=== PATIENT | male | born 1950 | race Caucasian/White ===

== ENCOUNTER 2025-08-01 15:37 | Inpatient (IN) | payer MEDICARE, SELFPAY ==
[2025-08-01] VITALS (20 sets, daily range): BP systolic 109–131; BP diastolic 59–69; BMI 30.9; BMI 29.8
--- NOTE | 2025-08-01 12:45 | ED.GENMED ---
History of Present Illness
<Magdalene Correa PA-C - Last Filed: 08/01/25 19:13>
General
Chief Complaint: Chest Pain
Source: patient
Exam Limitations: none
Time Seen by Provider: 08/01/25 12:34
History of Present Illness
History of Present Illness:
75yoM with a history of hypertension, hyperlipidemia, rheumatoid arthritis, and PMR presenting with his for evaluation of chest pain. He initially had some central chest tightness last night but did not tell his . He was able to sleep
last night and woke up again today with chest tightness. He was trying to sleep about an hour ago when his symptoms worsened. His noticed that he appeared sweaty and brought him to the ED for evaluation. He is also having shortness of breath
with even minimal exertion. Chest pain is worse with deep breathing. No dizziness, syncope, paresthesias, vomiting, abdominal pain, cough, fever. 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
was managed medically. 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 Souza.
Past History
<Magdalene Correa PA-C - Last Filed: 08/01/25 19:13>
Past History
ED Past Medical History: HTN, Hypercholesterolemia, Other (PMR) and Other (Urosepsis)
ED Past Surgical History: Cardiac and Orthopedic (Back surgery)
Social History
Tobacco: Non-smoker
Personal:
Living: with family
Employment: Employed
Family History
Family History: Negative Early CAD
Phy Exam
<Magdalene Correa PA-C - Last Filed: 08/01/25 19:13>
Physical Exam
Physical Exam:
Ill appearing, diaphoretic
General Physical Exam
General Presentation: mild distress
General Skin: warm and dry
General Habitus: normal
General Mental: alert
ENT Exam
ENT Exam: normocephalic
Cardiovascular Exam
Cardiovascular Exam: regular rate/rhythm and normal peripheral pulses (2+ radial and DP pulses bilaterally)
Pulmonary Exam
Pulmonary Exam: lungs clear, no respiratory distress, no rales, no crackles, no rhonchi and no wheezing
Gastrointestinal Exam
Gastrointestinal Exam: non tender, soft and non distended
Neurological Exam
Neurological Exam: alert
John Coma Scale
Eye Opening: Spontaneous
Verbal Response: Oriented
Motor Response: Obeys Commands
GCS Total Score: 15
Skin Exam
Skin Exam: normal color and diaphoresis
Psychiatric Exam
Psychiatric Exam: normal mood/affect
<Danyell Braun MD - Last Filed: 08/01/25 14:15>
John Coma Scale
GCS Total Score: 15
Scores
<Magdalene Correa PA-C - Last Filed: 08/01/25 19:13>
Heart Score for Chest Pain Patients
STEMI patient?: No
History: Highly Suspicious
ECG: Significant ST-Depression
Age: >/= 65 years
Risk Factors: >/= 3 Risk Factors or History of CAD
Troponin: </= Normal Limit
Heart Score for Chest Pain Patients: 8
Heart Score Risk: 72.7 % MACE over next 6 weeks
Course
<Magdalene Correa PA-C - Last Filed: 08/01/25 19:13>
Orders/Labs/Results
Orders:
Orders
08/01/25 Breakfast
NPO
Allow oral meds: Yes
Allow clear liquids: Sips of Clears
08/01/25 12:23
Electrocardiogram (*1) Urgent
Reason for Study: Chest Pain
EKG- Treatment ONCE
08/01/25 12:43
Cardiac Monitoring- Treatment ONCE
CXR Port [CR Chest Portable - 1 View] Stat
Comment:
Reason For Exam: CP
Reason Study Needs to be Portable: Patient Unstable
08/01/25 12:45
Complete Blood Count/With Diff Urgent
Comprehensive Metabolic Panel Urgent
D-Dimer Urgent
PTT Urgent
Prothrombin Time Urgent
Troponin I Urgent
08/01/25 12:52
Aspirin Chewable [Low Strength Aspirin] 243 mg PO NOW STA
08/01/25 12:54
Morphine Sulfate 2 mg IV NOW STA
08/01/25 13:30
Potassium Chloride [KCl] 20 meq PO NOW STA
08/01/25 14:14
Heparin 4,000 units IV NOW STA
08/01/25 14:15
Heparin 24133 Units/250 ml 25,000 units in 250 ml IV PER PROTOCOL
Weight to be used for heparin protocol in kilograms (kg):: 92.2
Protocol:: Cardiac Tx/Acute Coronary
PTT Goal Range to be used:: PTT 73 to 111 seconds
Order type:: Initial
INITIAL Infusion Dose (UNITS/KG/hr) & then follow protocol:: 12 units/kg/hr
Infusion Dose in UNITS/hr & then follow protocol (UNITS/hr):: 1,000
INFUSION RATE in mL/hr & then follow protocol (mL/hr):: 10
PTT less than or equal to 64 seconds:: Increase rate by 200 units/hr (+ 2 mL/hr)
PTT 64.1 to 72.9 seconds:: Increase rate by 100 units/hr (+ 1 mL/hr)
PTT 73 to 111 seconds:: Target Range. No change in rate.
PTT 111.1 to 130.9 seconds:: Decrease rate by 100 units/hr (- 1 mL/hr)
PTT 131 to 199.9 seconds:: HOLD for 1 hr. Then decrease rate by 200 units/hr (- 2 mL/hr)
PTT greater than or equal to 200 seconds:: HOLD for 2 hrs & Notify Provider. Then decrease by 200 units/hr (-
2 mL/hr)
Lab follow-up:: Each change, PTT q6h until 2 consecutive are therapeutic. Then PTT
daily.
Nitroglycerin 100 mg/250 ml [Nitroglycerin Premix] 100 mg in 250 ml IV PER PROTOCOL
Initial dose in mcg/min, then titrate:: 5
Titrate to keep:: Chest Pain Free
Titrate by mcg/min:: 5 mcg/min, may increase by 10 mcg/min if dose > 20 mcg/min
Frequency of titrations (minutes):: every 3-5 minutes
Maximum dose in mcg/min:: 200
Begin to taper infusion when:: Remained at goal for 2hrs
Taper by mcg/min:: 5 mcg/min
Frequency of taper (minutes) if patient maintains goal:: 30
Taper to off?: Yes
If infusion off & no longer maintaining goal:: Contact Provider
08/01/25 14:24
Admit/Transfer Patient As Directed
Co-Sign Provider:
Level of Care: Inpatient admission
Assign to:: IVU
Physician / Group: chato
Diagnosis: nstemi
Reason for Hospitalization: nstemi
Expected length of stay greater than two midnights?: Yes
ELOS- Estimated Length of Stay in days: 2
I certify the patient meets the requirements for IP care: Yes
08/01/25 14:25
Code Status As Directed
Resuscitation Status: Full Code
PRN Pain Medication Management As Directed
May give lesser potent ordered pain med per pt: Yes
preference::
Protocol:: Medication orders for pain may be administered in a
manner that supports deferring to patient preference
when the pt is:
- Requesting an ordered lesser potent pain medication.
Least to most potent pain medications are defined
as: acetaminophen < NSAID < tramadol < opioids
(morphine, oxycodone, hydromorphone).
- Requesting a lesser dose of the same medication IF
ORDERED.
- Requesting a less intrusive route of administration
if both routes are prescribed by the provider (PO <
IV).
08/01/25 Dinner
Cholesterol Lowering
At Your Request: Full Participation
Does patient need a safe tray?: No
Cholesterol Lowering: Sodium, 2 Gram
08/01/25 15:40
Ferrous Sulfate [Feosol] 325 mg PO Q48H
Zolpidem Tartrate [Ambien] 10 mg PO HSPRN PRN sleep
08/01/25 15:40
CARDIOLOGY CONSULT Routine
Consulting Provider: Nadeen Khan
Was physician already notified: Yes
VTE Contraindication Routine
VTE Mechanical Device Contraindication: Medical Contraindication
Pharmocologic Contraindication: Medical Contraindication
Heparin Protocol- PTT Orders As Directed
PTT per Heparin protocol: -Obtain CBC and baseline PTT - if not already collected.
-Obtain PTT 6 hours from start of infusion. Then, every 6 hours until 2 consecutive
PTT's are therapeutic. Then, PTT Daily.
-With each rate change, obtain PTT every 6 hours until 2 consecutive PTT's are
therapeutic. Then, PTT Daily.
Activity As Directed
Activity Level: As Tolerated
Notify MD As Directed
Notify physician if: PTT is greater than or equal to 200.
Vital Signs As Directed
Frequency: Per unit guidelines
08/01/25 15:46
COVID-19 Antigen Urgent
Source: Nasal Swab
08/01/25 15:48
Troponin I Q6H
08/01/25 16:00
CefTRIAXone [Rocephin] 1,000 mg IV Q24H
Doxycycline Hyclate [Vibramycin] 100 mg 0.9% Sodium Chloride 250 ml [Nss] 250 ml IV Q12H
Sterile Water [Sterile Water For Injection] 10 ml IV Q24H
08/01/25 17:18
Influenza A+B Rapid Molecular Urgent
CECILIA Source: Nasal Swab
Specimen Description:
08/01/25 20:[address] Non Medication Order As Directed
Physician Order: PTT 6 hours after initial start of Heparin infusion
Above order entered?: Yes
08/01/25 21:40
Troponin I Q6H
08/02/25 03:40
Troponin I Q6H
08/02/25 06:00
Complete Blood Count/With Diff IN AM
Comprehensive Metabolic Panel IN AM
08/02/25 08:00
Aspirin Low Dose EC [Aspir Low (Enteric Coated)] 81 mg PO DAILY
Atorvastatin [Lipitor] 40 mg PO DAILY
Diltiazem Extended Release [Cardizem Cd] 120 mg PO DAILY
Duloxetine Delayed Release [Cymbalta Delayed Release] 90 mg PO DAILY
Hydrochlorothiazide [Oretic] 25 mg PO DAILY
Losartan [Cozaar] 100 mg PO DAILY
Metoprolol Xl [Toprol Xl] 50 mg PO DAILY
Multivitamin [Theragran] 1 tablet PO DAILY
Pantoprazole [Protonix] 40 mg PO DAILY
omega 6-oci-suu-fish oil [Fish Oil] 2 cap PO DAILY
08/02/25 09:40
Troponin I Q6H
08/03/25 06:00
Complete Blood Count/No Diff Q2D
Comment: notify provider: Platelet count < 130,000 or decrease by 50% from baseline
08/05/25 06:00
Complete Blood Count/No Diff Q2D
Comment: notify provider: Platelet count < 130,000 or decrease by 50% from baseline
08/07/25 06:00
Complete Blood Count/No Diff Q2D
Comment: notify provider: Platelet count < 130,000 or decrease by 50% from baseline
08/09/25 06:00
Complete Blood Count/No Diff Q2D
Comment: notify provider: Platelet count < 130,000 or decrease by 50% from baseline
08/11/25 06:00
Complete Blood Count/No Diff Q2D
Comment: notify provider: Platelet count < 130,000 or decrease by 50% from baseline
08/13/25 06:00
Complete Blood Count/No Diff Q2D
Comment: notify provider: Platelet count < 130,000 or decrease by 50% from baseline
08/15/25 06:00
Complete Blood Count/No Diff Q2D
Comment: notify provider: Platelet count < 130,000 or decrease by 50% from baseline
08/17/25 06:00
Complete Blood Count/No Diff Q2D
Comment: notify provider: Platelet count < 130,000 or decrease by 50% from baseline
Abnormal Lab Results
08/01/25
12:45
RBC 4.68 L 10^6/uL
(4.70-6.10)
Hgb 12.0 L g/dL
(13.0-18.0)
Hct 36.5 L %
(39.0-52.0)
MCV 78.0 L fL
(80.0-94.0)
MCH 25.6 L pg
(27.0-31.0)
MCHC 32.9 L g/dL
(33.0-37.0)
RDW 21.0 H %
(11.5-14.5)
Absolute Neuts (auto) 6.9 H 10^3/uL
(1.4-6.5)
Absolute Monos (auto) 1.3 H 10^3/uL
(0.1-0.6)
Monocytes % 12.2 H %
(1.7-9.3)
Potassium 3.4 L mmol/L
(3.5-5.1)
Carbon Dioxide 32 H mmol/L
(22-30)
Glucose 119 H mg/dl
(70-99)
08/01/25 12:45
08/01/25 12:45
Vital Signs
Initial and Last Documented VS:
Initial Vital Signs
Temp Pulse Resp BP Pulse Ox
99.1 F 85 18 120/62 99
08/01/25 12:27 08/01/25 12:27 08/01/25 12:27 08/01/25 12:27 08/01/25 12:27
Last Documented Vital Signs
Temp Pulse Resp BP Pulse Ox
98.3 F 83 16 121/59 94
08/01/25 18:45 08/01/25 18:45 08/01/25 18:45 08/01/25 18:45 08/01/25 18:45
<Danyell Braun MD - Last Filed: 08/01/25 14:15>
Orders/Labs/Results
Orders:
Orders
08/01/25 Breakfast
NPO
Allow oral meds: Yes
Allow clear liquids: Sips of Clears
08/01/25 12:23
Electrocardiogram (*1) Urgent
Reason for Study: Chest Pain
EKG- Treatment ONCE
08/01/25 12:43
Cardiac Monitoring- Treatment ONCE
CXR Port [CR Chest Portable - 1 View] Stat
Comment:
Reason For Exam: CP
Reason Study Needs to be Portable: Patient Unstable
08/01/25 12:45
Complete Blood Count/With Diff Urgent
Comprehensive Metabolic Panel Urgent
D-Dimer Urgent
PTT Urgent
Prothrombin Time Urgent
Troponin I Urgent
08/01/25 12:52
Aspirin Chewable [Low Strength Aspirin] 243 mg PO NOW STA
08/01/25 12:54
Morphine Sulfate 2 mg IV NOW STA
08/01/25 13:30
Potassium Chloride [KCl] 20 meq PO NOW STA
08/01/25 14:14
Heparin 4,000 units IV NOW STA
08/01/25 14:15
Heparin 07780 Units/250 ml 25,000 units in 250 ml IV PER PROTOCOL
Weight to be used for heparin protocol in kilograms (kg):: 92.2
Protocol:: Cardiac Tx/Acute Coronary
PTT Goal Range to be used:: PTT 73 to 111 seconds
Order type:: Initial
INITIAL Infusion Dose (UNITS/KG/hr) & then follow protocol:: 12 units/kg/hr
Infusion Dose in UNITS/hr & then follow protocol (UNITS/hr):: 1,000
INFUSION RATE in mL/hr & then follow protocol (mL/hr):: 10
PTT less than or equal to 64 seconds:: Increase rate by 200 units/hr (+ 2 mL/hr)
PTT 64.1 to 72.9 seconds:: Increase rate by 100 units/hr (+ 1 mL/hr)
PTT 73 to 111 seconds:: Target Range. No change in rate.
PTT 111.1 to 130.9 seconds:: Decrease rate by 100 units/hr (- 1 mL/hr)
PTT 131 to 199.9 seconds:: HOLD for 1 hr. Then decrease rate by 200 units/hr (- 2 mL/hr)
PTT greater than or equal to 200 seconds:: HOLD for 2 hrs & Notify Provider. Then decrease by 200 units/hr (-
2 mL/hr)
Lab follow-up:: Each change, PTT q6h until 2 consecutive are therapeutic. Then PTT
daily.
Nitroglycerin 100 mg/250 ml [Nitroglycerin Premix] 100 mg in 250 ml IV PER PROTOCOL
Initial dose in mcg/min, then titrate:: 5
Titrate to keep:: Chest Pain Free
Titrate by mcg/min:: 5 mcg/min, may increase by 10 mcg/min if dose > 20 mcg/min
Frequency of titrations (minutes):: every 3-5 minutes
Maximum dose in mcg/min:: 200
Begin to taper infusion when:: Remained at goal for 2hrs
Taper by mcg/min:: 5 mcg/min
Frequency of taper (minutes) if patient maintains goal:: 30
Taper to off?: Yes
If infusion off & no longer maintaining goal:: Contact Provider
08/01/25 14:24
Admit/Transfer Patient As Directed
Co-Sign Provider:
Level of Care: Inpatient admission
Assign to:: IVU
Physician / Group: chato
Diagnosis: nstemi
Reason for Hospitalization: nstemi
Expected length of stay greater than two midnights?: Yes
ELOS- Estimated Length of Stay in days: 2
I certify the patient meets the requirements for IP care: Yes
08/01/25 14:25
Code Status As Directed
Resuscitation Status: Full Code
PRN Pain Medication Management As Directed
May give lesser potent ordered pain med per pt: Yes
preference::
Protocol:: Medication orders for pain may be administered in a
manner that supports deferring to patient preference
when the pt is:
- Requesting an ordered lesser potent pain medication.
Least to most potent pain medications are defined
as: acetaminophen < NSAID < tramadol < opioids
(morphine, oxycodone, hydromorphone).
- Requesting a lesser dose of the same medication IF
ORDERED.
- Requesting a less intrusive route of administration
if both routes are prescribed by the provider (PO <
IV).
08/01/25 Dinner
Cholesterol Lowering
At Your Request: Full Participation
Does patient need a safe tray?: No
Cholesterol Lowering: Sodium, 2 Gram
08/01/25 15:40
Ferrous Sulfate [Feosol] 325 mg PO Q48H
Zolpidem Tartrate [Ambien] 10 mg PO HSPRN PRN sleep
08/01/25 15:40
CARDIOLOGY CONSULT Routine
Consulting Provider: Nadeen Khan
Was physician already notified: Yes
VTE Contraindication Routine
VTE Mechanical Device Contraindication: Medical Contraindication
Pharmocologic Contraindication: Medical Contraindication
Heparin Protocol- PTT Orders As Directed
PTT per Heparin protocol: -Obtain CBC and baseline PTT - if not already collected.
-Obtain PTT 6 hours from start of infusion. Then, every 6 hours until 2 consecutive
PTT's are therapeutic. Then, PTT Daily.
-With each rate change, obtain PTT every 6 hours until 2 consecutive PTT's are
therapeutic. Then, PTT Daily.
Activity As Directed
Activity Level: As Tolerated
Notify MD As Directed
Notify physician if: PTT is greater than or equal to 200.
Vital Signs As Directed
Frequency: Per unit guidelines
08/01/25 15:46
COVID-19 Antigen Urgent
Source: Nasal Swab
08/01/25 15:48
Troponin I Q6H
08/01/25 16:00
CefTRIAXone [Rocephin] 1,000 mg IV Q24H
Doxycycline Hyclate [Vibramycin] 100 mg 0.9% Sodium Chloride 250 ml [Nss] 250 ml IV Q12H
Sterile Water [Sterile Water For Injection] 10 ml IV Q24H
08/01/25 17:18
Influenza A+B Rapid Molecular Urgent
CECILIA Source: Nasal Swab
Specimen Description:
08/01/25 20:[address] Non Medication Order As Directed
Physician Order: PTT 6 hours after initial start of Heparin infusion
Above order entered?: Yes
08/01/25 21:40
Troponin I Q6H
08/02/25 03:40
Troponin I Q6H
08/02/25 06:00
Complete Blood Count/With Diff IN AM
Comprehensive Metabolic Panel IN AM
08/02/25 08:00
Aspirin Low Dose EC [Aspir Low (Enteric Coated)] 81 mg PO DAILY
Atorvastatin [Lipitor] 40 mg PO DAILY
Diltiazem Extended Release [Cardizem Cd] 120 mg PO DAILY
Duloxetine Delayed Release [Cymbalta Delayed Release] 90 mg PO DAILY
Hydrochlorothiazide [Oretic] 25 mg PO DAILY
Losartan [Cozaar] 100 mg PO DAILY
Metoprolol Xl [Toprol Xl] 50 mg PO DAILY
Multivitamin [Theragran] 1 tablet PO DAILY
Pantoprazole [Protonix] 40 mg PO DAILY
omega 6-zwv-pwv-fish oil [Fish Oil] 2 cap PO DAILY
08/02/25 09:40
Troponin I Q6H
08/03/25 06:00
Complete Blood Count/No Diff Q2D
Comment: notify provider: Platelet count < 130,000 or decrease by 50% from baseline
08/05/25 06:00
Complete Blood Count/No Diff Q2D
Comment: notify provider: Platelet count < 130,000 or decrease by 50% from baseline
08/07/25 06:00
Complete Blood Count/No Diff Q2D
Comment: notify provider: Platelet count < 130,000 or decrease by 50% from baseline
08/09/25 06:00
Complete Blood Count/No Diff Q2D
Comment: notify provider: Platelet count < 130,000 or decrease by 50% from baseline
08/11/25 06:00
Complete Blood Count/No Diff Q2D
Comment: notify provider: Platelet count < 130,000 or decrease by 50% from baseline
08/13/25 06:00
Complete Blood Count/No Diff Q2D
Comment: notify provider: Platelet count < 130,000 or decrease by 50% from baseline
08/15/25 06:00
Complete Blood Count/No Diff Q2D
Comment: notify provider: Platelet count < 130,000 or decrease by 50% from baseline
08/17/25 06:00
Complete Blood Count/No Diff Q2D
Comment: notify provider: Platelet count < 130,000 or decrease by 50% from baseline
Abnormal Lab Results
08/01/25
12:45
RBC 4.68 L 10^6/uL
(4.70-6.10)
Hgb 12.0 L g/dL
(13.0-18.0)
Hct 36.5 L %
(39.0-52.0)
MCV 78.0 L fL
(80.0-94.0)
MCH 25.6 L pg
(27.0-31.0)
MCHC 32.9 L g/dL
(33.0-37.0)
RDW 21.0 H %
(11.5-14.5)
Absolute Neuts (auto) 6.9 H 10^3/uL
(1.4-6.5)
Absolute Monos (auto) 1.3 H 10^3/uL
(0.1-0.6)
Monocytes % 12.2 H %
(1.7-9.3)
Potassium 3.4 L mmol/L
(3.5-5.1)
Carbon Dioxide 32 H mmol/L
(22-30)
Glucose 119 H mg/dl
(70-99)
08/01/25 12:45
08/01/25 12:45
Vital Signs
Initial and Last Documented VS:
Initial Vital Signs
Temp Pulse Resp BP Pulse Ox
99.1 F 85 18 120/62 99
08/01/25 12:27 08/01/25 12:27 08/01/25 12:27 08/01/25 12:27 08/01/25 12:27
Last Documented Vital Signs
Temp Pulse Resp BP Pulse Ox
98.3 F 83 16 121/59 94
08/01/25 18:45 08/01/25 18:45 08/01/25 18:45 08/01/25 18:45 08/01/25 18:45
<Magdalene Correa PA-C - Last Filed: 08/01/25 19:13>
MDM/Problems Addressed
Differential Diagnosis Includes:
75yoM here with chest tightness and exertional dyspnea since last night. Diaphoretic on initial exam. Pain is pleuritic in nature. VSS. Differential diagnosis includes: ACS, unstable angina, PE, doubt aortic dissection
Initial ED plan: Triage EKG shows new ST changes in inferolateral leads without elevations. Will check cardiac labs, D-dimer, CXR. Aspirin ordered (already took 81mg so far today). IV morphine for pain.
<Magdalene Correa PA-C - Last Filed: 08/01/25 19:13>
*Pulse Oximetry
SaO2: 95
Oxygen Mode of Delivery: Room air
Patient hypoxic: no
*EKG
Interpreted by ED Provider?: Yes
EKG Intrepretation Date: 08/01/25
Heart Rate: 80
Rate: normal
Rhythm: sinus
[place]: normal axis
Interval: normal interval
QRS Pattern: normal QRS
Ischemia: ST depression (ST/T wave changes in inferolateral leads)
*Critical Care Note
Total Time (30-74mins, 75-104mins- exclusive of procedures): Not Applicable
<Magdalene Correa PA-C - Last Filed: 08/01/25 19:13>
Update Note
Update Note:
Troponin within normal limits. D-dimer normal making PE very unlikely. Chest x-ray interpreted as having a mild opacity in the left lower lobe representing probable pneumonia. He has no cough or fever and this would not explain the EKG changes.
Case discussed with cardiology team. Patient initiated on IV heparin. He is still having active chest pain and nitroglycerin infusion also initiated. Patient admitted for further management.
ED Attending Note
<SU Jeong-Ena - Last Filed: 08/01/25 19:13>
-
Portions of this chart may have been created with voice recognition software.� Occasional wrong word or��sound alike� substitutions may have occurred due to the inherent limitations of voice recognition software.
<Danyell Braun MD - Last Filed: 08/01/25 14:15>
ED Attending Note
Patient seen and examined by attending physician: Yes
I performed the substantive portion of visit, reviewed & personally made and approve the management plan that is documented in note by myself or KIRILL.: Yes
ED Attending Note:
Patient complains of 2 days of intermittent shortness of breath and sternal chest pain that is worse when he takes a deep breath. Patient appears well on exam. Heart sounds regular lungs are clear. EKG has deep lateral ST depressions. Given the
setting of concerns for acute coronary syndrome, we will start nitro and heparin in hopes of getting patient completely pain-free.
Discharge Plan
Departure
Patient Disposition: Admit
Date of Disposition: 08/01/25
Time of Disposition: 13:58
Presentation/result/management discussed w/ accepting MD/DO: Hospitalist
Discharge Problem:
Chest pain, Abnormal EKG
Interventions
Interventions:
*General Assessment Last Done: 08/01/25 12:39
*Neglect/Abuse Screening Last Done: 08/01/25 12:39
*ED COVID-19 Vaccine History Last Done: 08/01/25 12:39
*ED Influenza Vaccine History Last Done: 08/01/25 12:39
[facility] Risk Assessment Tool Last Done: 08/01/25 12:39
*Risk Screen - Suicide (C-SSRS) Last Done: 08/01/25 12:39
*Nursing Disposition Last Done: 08/01/25 15:42
ED- Cardiac Assessment Last Done: 08/01/25 12:39
Discharge Date and Time
Discharge Date/Time: 08/01/25 15:30
[2025-08-01 13:04] LABS: Hematocrit 36.5 % (39.0-52.0); Hemoglobin 12.0 g/dL (13.0-18.0); Mean Corp Hgb Conc. 32.9 g/dL (33.0-37.0); Mean Corpuscular Volume 78.0 fL (80.0-94.0); Nucleated Red Blood Cells % 0.3 % (-); Platelet Count 304 10^3/uL (130-400); Red Cell Dist. Width 21.0 % (11.5-14.5)
[2025-08-01] MEDS: MORPHINE SULFATE 2 MG IV (13:09)
[2025-08-01] MEDS: LOW STRENGTH ASPIRIN 243 MG PO (13:09)
[2025-08-01 13:27] LABS: ALT (SGPT) 33 U/L (0-50); AST (SGOT) 39 U/L (17-59); Albumin 4.4 g/dl (3.5-5.0); Alkaline Phosphatase 79 U/L (38-126); Blood Urea Nitrogen 17 mg/dl (9-20); Calcium 9.3 mg/dl (8.4-10.2); Carbon Dioxide 32 mmol/L (22-30); Chloride 99 mmol/L (98-107); Estimated Creatinine Clearance 71 ml/min; Glucose 119 mg/dl (70-99); Potassium 3.4 mmol/L (3.5-5.1); Sodium 137 mmol/L (135-145); Total Protein 7.6 g/dl (6.3-8.2); eGFR > 60.00
[2025-08-01] MEDS: KCL 20 MEQ PO (13:38)
[2025-08-01 13:40] LABS: Troponin I < 0.012 ng/ml
[2025-08-01 13:47] LABS: INR 1.05; PT 13.5 Sec (11.4-14.6)
[2025-08-01 13:48] LABS: APTT 30.6 Sec (23.4-35.0)
[2025-08-01 13:50] LABS: D-Dimer 0.38 ug/mlFEU (0.00-0.50)
[2025-08-01] MEDS: NITROGLYCERIN PREMIX 250 IV (14:27)
--- NOTE | 2025-08-01 14:33 | HPS.HSE ---
Family Physician
-
Family Physician:
Chief Complaint
-
chest pain
History of Present Illness
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 pylori, colonic polyp presenting for chest pain.
He had central chest tightness last night but was able to sleep and woke up today with chest tightness/pressure. Symptoms worsened an hour ago. notes that he was sweaty. Also shortness of it with minimal exertion. Chest pain worse with deep
breathing. Denies dizziness or passing out, numbness or tingling, vomiting, abdominal pain, fever. Denies nausea.
He has also had dry cough for few days.
Pain is currently rated 1 out of 10.
He had cardiac catheterization in 2021 which showed focal 40% mild stenosis of proximal RCA which was managed medically. 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
He denies smoking or alcohol use.
Medical History
Past Medical History
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 pylori, colonic polyp)
Past Surgical History: Reports None
Social History
Tobacco: Non-smoker
Alcohol: None
Drug: None
Family History
Family History: Not pertinent
Allergies / Home Medications
Allergies reflects when Allergies were last updated in [employer].
Home Medications with original date entered in [employer]
Allergy/Medication List:
Allergies
Allergy/AdvReac Type Severity Reaction Status Date / Time
No Known Allergies Allergy Verified 10/03/22 12:51
Home Medications
duloxetine 30 mg capsule,delayed release 90 mg PO DAILY Mental Health/Anxiety 11/02/21
sildenafil 100 mg tablet (Viagra) 100 mg PO DAILYPRN PRN ed 02/03/22
atorvastatin 40 mg tablet (Lipitor) 40 mg PO DAILY High cholesterol 11/26/22
zolpidem 10 mg tablet (Ambien) 10 mg PO HSPRN PRN sleep 07/03/22
pantoprazole 40 mg tablet,delayed release 40 mg PO DAILY Gastrointestinal issue 10/03/22
aspirin 81 mg tablet,delayed release 81 mg PO DAILY 08/01/25
diltiazem HCl 120 mg capsule,extended release 24 hr 120 mg PO DAILY 08/01/25
ferrous sulfate 325 mg (65 mg iron) tablet 325 mg PO Q48H 08/01/25
hydrochlorothiazide 25 mg tablet 25 mg PO DAILY 08/01/25
metoprolol succinate 50 mg tablet,extended release 24 hr 50 mg PO DAILY 08/01/25
multivitamin 1 tab PO DAILY 08/01/25
olmesartan 40 mg tablet 40 mg PO DAILY 08/01/25
omega 2-vpq-[id number]-fish oil 1,200 mg (144 mg-216 mg) capsule (Fish Oil) 2 cap PO DAILY 08/01/25
Review of Systems
-
History Source: Patient
A 12 point ROS was completed and negative except as noted: Yes
Constitutional: Reports No Symptoms
EENT: Reports No Symptoms
Respiratory: Reports See HPI
Cardiac: Reports See HPI
Abdomen/GI: Reports No Symptoms
: Reports No Symptoms
Musculoskeletal: Reports No Symptoms
Skin: Reports No Symptoms
Neurological: Reports No Symptoms
Endocrine: Reports No Symptoms
Hematologic/Lymphatic: Reports No Symptoms
Psych: Reports No Symptoms
Physical Exam
Vital Signs
Vital Signs
Temp Pulse Resp BP Pulse Ox
99.3 F 70 12 119/68 96
08/01/25 12:43 08/01/25 14:15 08/01/25 13:30 08/01/25 14:00 08/01/25 14:15
Physical Exam
General: Well Developed, Well Nourished and No Apparent Distress
HEENT: NormoCephalic, Moist mucous membranes and Atraumatic
Respiratory: Clear
Cardiac: S1/S2 and Regular Rhythm; No Murmur or Rub
GI: Soft, Non Tender, Non Distended and Normal Bowel Sounds; No Organomegaly
Rectal: Deferred by Provider
Musculoskeletal: No Clubbing, No Cyanosis and No Edema
Skin: No Rash
Neuro: Nonfocal/grossly intact
Laboratory Results
-
08/01/25 12:45
08/01/25 12:45
Laboratory Results
PT 13.5 Sec (11.4-14.6) 08/01/25 12:45
INR 1.05 08/01/25 12:45
APTT 30.6 Sec (23.4-35.0) 08/01/25 12:45
Total Bilirubin 0.7 mg/dl (0.2-1.3) 08/01/25 12:45
AST 39 U/L (17-59) 08/01/25 12:45
ALT 33 U/L (0-50) 08/01/25 12:45
Alkaline Phosphatase 79 U/L (38-126) 08/01/25 12:45
Troponin I < 0.012 ng/ml 08/01/25 12:45
Data Reviewed
-
Lab Data: Labs Reviewed by me
Old Records: Reviewed
Impression/Plan
-
IMPRESSION:
PLAN:
# Unstable angina/NSTEMI
- EKG shows T wave inversions in leads V3 to V6
-D-dimer 0.38
- Troponin negative
- Trend troponins
- Aspirin given
- Morphine given for pain
-Heparin drip
-Nitroglycerin drip
- Continue statin
- Cardiology consulted
- N.p.o. postmidnight for potential catheterization tomorrow
# Mild localized opacity in the left lower lobe
- Chest x-ray shows mild localized opacity left lower lobe probable pneumonia,
-Check COVID and influenza
- Will treat with ceftriaxone/doxycycline given cough and pleuritic pain
# Hypokalemia secondary to hydrochlorothiazide
- Replete potassium
History of CAD
- Continue metoprolol
Iron deficient anemia
- Continue iron sulfate
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
Essential hypertension
- Continue hydrochlorothiazide, olmesartan, diltiazem
Hyperlipidemia
Polymyalgia rheumatica
- Continue hydroxychloroquine
Anxiety/depression
- Continue duloxetine
BPH
History of H. pylori
History of colonic polyp
Full code
DVT prophylaxis�heparin
Regular diet
[2025-08-01] MEDS: HEPARIN 25000 UNITS/250 ML IV (14:48)
[2025-08-01] MEDS: HEPARIN 4000 UNITS IV (14:48)
--- NOTE | 2025-08-01 15:21 | CON.CAR ---
Consultation
Consultation Request
Date/Time Consultation Requested: 08/01/25
Reason for Consultation: 08/01/25
Medical History
-
Chief Complaint: Chest pain
History of Present Illness:
75-year-old gentleman, with history of iron deficiency anemia, history of TRALI, HTN, HPL, PMR, CAD, BPH, H. pylori, colonic polyp presented with 1 day history of chest pain. Patient's chest pains was mid chest associate with shortness of breath
that started yesterday. Patient's chest pain was significant enough and was rated as 7 out of 10. The pain improved with rest and patient was able to sleep. Patient slept for 2 hours and woke up again with ongoing chest pain. Patient was noted to be
somewhat sweaty and short of breath. He was having difficulty taking deep breaths and was brought to the ER. Patient also noted to have dry cough for the past few days. When initially patient presented he reported his chest pain was 7 out of 10 but
was treated with aspirin and morphine. At the time of my evaluation in the ER. His pain was 1 out of 10.
He does have a history of Cardi catheterization in 2021 that showed proximal RCA 40% stenosis and has been manage conservatively.
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 Souza
Left heart cath�Dr. Guidera 11/02/2021
RCA: Large dominant vessel with focal 40% mid stenosis proximal to the crux. The vessel is otherwise angiographically normal
1: Normal left ventricular function with EF 64%
2: Mild single vessel CAD as described
3. Continue low-dose aspirin and will add atorvastatin 40 mg daily and stop red yeast rice. He has been advised to have a lipid panel in 6-[address] Rodrigez or Dr. Renee
ECHO: 10/04/2022
Normal biventricular size and systolic function without regional wall motion
abnormality.
Moderate left atrial enlargement.
Mild mitral regurgitation.
Mild tricuspid regurgitation.
Estimated pulmonary artery pressure of 35-40 mmHg assuming a right atrial
pressure of 3 mmHg.
Compared to prior study of 07/06/2022 left atrial enlargement is now present.
and PASP estimate has increased from 15-20 mmHg.
Past Medical History
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 pylori,
colonic polyp)
Social History
Tobacco: Non-Smoker
Family History
Family History: Reviewed & Not Pertinent
Allergies / Home Medications
Allergy/AdvReac Type Severity Reaction Status Date / Time
No Known Allergies Allergy Verified 10/03/22 12:51
�Medication �Instructions �Recorded �Confirmed �Type
duloxetine 30 mg capsule,delayed 90 mg PO DAILY Mental 11/02/21 08/01/25 History
release Health/Anxiety
sildenafil 100 mg tablet (Viagra) 100 mg PO DAILYPRN PRN ed 02/03/22 08/01/25 History
atorvastatin 40 mg tablet (Lipitor) 40 mg PO DAILY High cholesterol 07/03/22 08/01/25 History
zolpidem 10 mg tablet (Ambien) 10 mg PO HSPRN PRN sleep 07/03/22 08/01/25 History
pantoprazole 40 mg tablet,delayed 40 mg PO DAILY Gastrointestinal 10/03/22 08/01/25 History
release issue
aspirin 81 mg tablet,delayed 81 mg PO DAILY 08/01/25 08/01/25 History
release
diltiazem HCl 120 mg 120 mg PO DAILY 08/01/25 08/01/25 History
capsule,extended release 24 hr
ferrous sulfate 325 mg (65 mg 325 mg PO Q48H 08/01/25 08/01/25 History
iron) tablet
hydrochlorothiazide 25 mg tablet 25 mg PO DAILY 08/01/25 08/01/25 History
metoprolol succinate 50 mg 50 mg PO DAILY 08/01/25 08/01/25 History
tablet,extended release 24 hr
multivitamin 1 tab PO DAILY 08/01/25 08/01/25 History
olmesartan 40 mg tablet 40 mg PO DAILY 08/01/25 08/01/25 History
omega 8-sxj-epz-fish oil 1,200 mg 2 cap PO DAILY 08/01/25 08/01/25 History
(144 mg-216 mg) capsule (Fish Oil)
Review of Systems
-
All other systems: Negative unless noted
Physical Exam
Vital Signs
Temp Pulse Resp BP Pulse Ox
99.3 F 68 12 116/63 97
08/01/25 12:43 08/01/25 14:45 08/01/25 13:30 08/01/25 14:45 08/01/25 14:45
Lab Results
08/01/25 12:45
08/01/25 12:45
Troponin I < 0.012 ng/ml 08/01/25 12:45
Physical Exam
General: Well Developed, Well Nourished and No Apparent Distress
HEENT: Normocephalic, Anicteric and Moist Mucous Membranes
Respiratory: Clear and Non Labored Respirations
Cardiac: S1/S2 and Regular Rhythm
GI: Soft, Non Tender and Non Distended
Musculoskeletal: No Clubbing, No Cyanosis and No Edema
Skin: Warm and Dry
Neuro: Awake, Alert, Oriented and AO x 3
Impression / Plan
-
75-year-old gentleman with history of nonobstructive coronary disease, HPL, and HTN presented with 1 day history of chest pain
Unstable angina/NSTEMI
- Troponin is negative, currently chest pain is 1 out of 10.
- Patient reports exertional pain
- EKG shows mild lateral wall ST depressions. Appears new from previous EKG in 2022
- Status post aspirin bolus, morphine, oxygen and heparin drip
- Will start nitroglycerin drip as well. No recent sildenafil use.
- Aspirin 81 mg every day
- Statin therapy
- Continue metoprolol. Hold diltiazem and HCTZ.
- Continue heparin
- N.p.o. after midnight
- Serial troponin
- Serial EKG
- If chest pain gets worse or new changes in EKG noted or significant elevation of troponin, we will consider urgent cardiac catheterization today.
Left lower lobe opacity
- Chest x-ray mild localized left lower lobe pneumonia
- Rule out COVID
- Treat with ceftriaxone and doxycycline
Hypokalemia
- Replete potassium
Hypertension
- Continue metoprolol and olmesartan.
- Hold diltiazem and HCTZ.
- Nitroglycerin drip.
Data Reviewed
-
EKG: Tracing Personally Visualized and interpreted, Report Reviewed by me, Discussed with Physician, Discussed with Patient and Discussed with Family
Radiology: Report Reviewed by me
Medical Tests (Nuc Med, Echo etc): Image Personally Visualized and interpreted
Labs: Labs Reviewed by me, Discussed with Physician, Discussed with Nurse and Discussed with Patient
Old Records: Reviewed
[2025-08-01 16:10] LABS: COVID-19 Antigen Negative (Negative)
[2025-08-01 16:19] LABS: Troponin I < 0.012 ng/ml
[2025-08-01] MEDS: ROCEPHIN 1000 MG IV (17:10)
[2025-08-01] MEDS: FEOSOL 325 MG PO (17:11)
[2025-08-01] MEDS: STERILE WATER FOR INJECTION 10 ML IV (17:11)
--- NOTE | 2025-08-01 18:04 | PTCARENOTE ---
Patient received from ED as nstemi admission. Heparin and nitro gtts infusing. The patient presently denies chest pain. Endorses feeling lightheaded at times. SR on telemetry. SaO2 on RA 97%. Admission completed. Patient and spouse oriented to room
and unit. Bed alarm in place as the patient is a high fall risk, the patient reported several falls in the past six months and increasing fatigue. Plan of care discussed. Call hutson within reach. Care ongoing.
[2025-08-01] MEDS: VIBRAMYCIN 100 MG PO (18:15)
[2025-08-01 21:46] LABS: APTT 98.0 Sec (23.4-35.0)
[2025-08-01 21:55] LABS: Troponin I < 0.012 ng/ml
[2025-08-02] VITALS (12 sets, daily range): BP systolic 119–136; BP diastolic 57–82; PULSE 82
[2025-08-02 03:38] LABS: Hematocrit 34.7 % (39.0-52.0); Hemoglobin 11.0 g/dL (13.0-18.0); Mean Corp Hgb Conc. 31.7 g/dL (33.0-37.0); Mean Corpuscular Volume 79.0 fL (80.0-94.0); Nucleated Red Blood Cells % 0 % (-); Platelet Count 245 10^3/uL (130-400); Red Cell Dist. Width 21.0 % (11.5-14.5)
[2025-08-02 03:48] LABS: APTT 96.9 Sec (23.4-35.0)
[2025-08-02 04:09] LABS: Troponin I < 0.012 ng/ml
[2025-08-02 04:46] LABS: ALT (SGPT) 32 U/L (0-50); AST (SGOT) 36 U/L (17-59); Albumin 4.0 g/dl (3.5-5.0); Alkaline Phosphatase 78 U/L (38-126); Blood Urea Nitrogen 19 mg/dl (9-20); Calcium 8.8 mg/dl (8.4-10.2); Carbon Dioxide 29 mmol/L (22-30); Chloride 100 mmol/L (98-107); Estimated Creatinine Clearance 70 ml/min; Glucose 118 mg/dl (70-99); Potassium 3.1 mmol/L (3.5-5.1); Sodium 137 mmol/L (135-145); Total Protein 6.7 g/dl (6.3-8.2); eGFR > 60.00
[2025-08-02] MEDS: KCL 270 MEQ IV (05:35)
--- NOTE | 2025-08-02 06:12 | PTCARENOTE ---
NSR on monitor, VSS Denies chest pain or any discomfort. Hepatin and nitro gtt per order. NPO after midnight
--- NOTE | 2025-08-02 08:00 | PTCARENOTE ---
Assumed care this morning. Patient AO x3. Heparin, Nitro infusing per MAR. Denies chest pain, only has chest discomfort with deep inspiration, occasional cough, lungs CTA, 98% on room air. NPO for cath today
[2025-08-02] MEDS: ASPIR LOW (ENTERIC COATED) 81 MG PO (08:04)
[2025-08-02] MEDS: PROTONIX 40 MG PO (08:04)
[2025-08-02] MEDS: VIBRAMYCIN 100 MG PO ×2 (08:04→20:17)
[2025-08-02] MEDS: CYMBALTA DELAYED RELEASE 90 MG PO (08:04)
[2025-08-02] MEDS: LIPITOR 40 MG PO (08:05)
[2025-08-02] MEDS: TOPROL XL 50 MG PO (08:05)
[2025-08-02] MEDS: THERAGRAN 1 TABLET PO (08:05)
[2025-08-02] MEDS: COZAAR 100 MG PO (08:05)
--- NOTE | 2025-08-02 09:48 | W.PN.HOSP.TC ---
Today's Communication/Plan
-
.
Assessment / Plan
Assessment / Plan
Physical Exam
General: Well Developed, Well Nourished and No Apparent Distress
HEENT: Normocephalic, Moist mucous membranes and Atraumatic
Respiratory: Clear
Cardiac: S1/S2
GI: Soft, Non Tender, Non Distended and Normal Bowel Sounds;
Rectal: Deferred by Provider
Musculoskeletal: No Clubbing, No Cyanosis and No Edema
Skin: No Rash
Neuro: Nonfocal/grossly intact
Psych: calm
# Chest pain
DDX: Unstable angina/NSTEMI or pulmonary source
- EKG showed some changes. Troponin remained negative
On IV Heparin gtt, Nitro gtt
Seems to be NPO for heart cath
# Mild localized opacity in the left lower lobe
- Chest x-ray showed mild localized opacity left lower lobe probable pneumonia/ atelectasis , lack of sob/cough/ leukocytosis ( he denies cough)
-Negative COVID and influenza
-Empiric ceftriaxone/doxycycline for now
# Hypokalemia secondary to hydrochlorothiazide
- Replete potassium
History of CAD
- Continue metoprolol
Iron deficient anemia
- Continue iron sulfate
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
Essential hypertension
- Hold hydrochlorothiazide, olmesartan, diltiazem with current drips and pending procedure
Hyperlipidemia
Polymyalgia rheumatica
- Continue hydroxychloroquine
Anxiety/depression
- Continue duloxetine
BPH
History of H. pylori
History of colonic polyp
Full code
DVT prophylaxis�heparin
Regular diet
Total time spent to see the patient, examine the patient, review data and lab results, discuss treatment plan with patient, nursing staff around 55 minutes
Anticipated Discharge: > 48 hours
Subjective/Interval History
-
Date of Service: August 02, 2025
Objective Data
-
Labs:
Laboratory Results
08/01/25 08/02/25
21:19 03:21
WBC 8.1
Hgb 11.0 L
Hct 34.7 L
Plt Count 245
APTT 98.0 H 96.9 H
Sodium 137
Potassium 3.1 L
Chloride 100
Carbon Dioxide 29
BUN 19
Creatinine 0.9
Glucose 118 H
Calcium 8.8
Total Bilirubin 0.3
AST 36
ALT 32
Alkaline Phosphatase 78
Vital Signs:
Vital Signs
Temp Pulse Resp BP Pulse Ox
99.0 F 75 16 127/67 97
08/02/25 08:03 08/02/25 05:00 08/02/25 08:03 08/02/25 03:15 08/02/25 08:03
I&O
08/01/25 08/02/25 08/03/25
06:59 06:59 06:59
Intake Total 120 / 120
Balance 120 / 120
--- NOTE | 2025-08-02 10:40 | CON.PUL ---
Consultation
Consultation Request
Date/Time Consultation Requested: 08/02/2025645
Date/Time Consultation Performed: 08/02/2025921
Requesting Provider: Dr. Turner
Performing Provider: Dr. Gil
Reason for Consultation: Abnormal CXR/pneumonia
Medical History
-
Chief Complaint: Chest pain + SOB
History of Present Illness:
75-year-old male with a past medical history of anemia, RA, PMR, hypertension, hyperlipidemia and history of COVID-19 who presents for chest pain + SOB. EKG showed nonspecific ST�T wave changes with ST depression/T wave inversions in the lateral
precordial leads, and troponins were negative x 4. His SOB started on [place] and he does not usually have SOB. He has a non-� bothersome cough. He has been feeling fatigued for 2 months, and was recently diagnosed with severe sleep apnea.
He is awaiting to see us in the office with Dr. Clements. The sleep study was ordered by his manufacturing quality engineer, Dr. Ornelas. CXR showed a mild localized opacity in the left lower lobe with suspected pneumonia. Given his concern for unstable angina, a
left heart catheterization was performed earlier this morning (08/02), showing nonobstructive CAD with normal LV filling pressures and no aortic stenosis. Heparin drip was stopped. Unfortunately, his SOB + chest discomfort has persisted.
Pulmonary service now consulted for additional management/recommendations.
PMHx: History of migraine headaches, hypokalemia, rheumatoid arthritis, history of psoriatic arthritis, hyperlipidemia, hypertension, history of MSSA bacteremia (2021), iron deficiency anemia, history of TACO, BPH, history of H. pylori, colonic
polyp
PSHx: Coronary cath, lumbar laminectomy
Past Medical History
Past Medical History: Other (Above as per HPI)
Past Surgical History: Other (Above as per HPI)
Social History
Tobacco: Non-smoker
Alcohol: None
Drug: None
Personal:
Living: With Family
Family History
Family History: Adopted, CAD (Mother), Hypertension (Mother) and Other (Denies a family history of blood clots)
Allergies / Home Medications
Allergies
Allergy/AdvReac Type Severity Reaction Status Date / Time
No Known Allergies Allergy Verified 10/03/22 12:51
Home Medications
�Medication �Instructions �Recorded �Confirmed �Last Taken �Type
duloxetine 30 mg capsule,delayed 90 mg PO DAILY Mental 11/02/21 08/01/25 08/01/25 History
release Health/Anxiety
sildenafil 100 mg tablet (Viagra) 100 mg PO DAILYPRN PRN ed 02/03/22 08/01/25 1 Week Ago History
~07/25/25
atorvastatin 40 mg tablet (Lipitor) 40 mg PO DAILY High cholesterol 07/03/22 08/01/25 08/01/25 History
zolpidem 10 mg tablet (Ambien) 10 mg PO HSPRN PRN sleep 07/03/22 08/01/25 2 Days Ago History
~07/30/25
pantoprazole 40 mg tablet,delayed 40 mg PO DAILY Gastrointestinal 10/03/22 08/01/25 08/01/25 History
release issue
aspirin 81 mg tablet,delayed 81 mg PO DAILY 08/01/25 08/01/25 08/01/25 History
release
diltiazem HCl 120 mg 120 mg PO DAILY 08/01/25 08/01/25 08/01/25 History
capsule,extended release 24 hr
ferrous sulfate 325 mg (65 mg 325 mg PO Q48H 08/01/25 08/01/25 Unknown History
iron) tablet
hydrochlorothiazide 25 mg tablet 25 mg PO DAILY 08/01/25 08/01/25 08/01/25 History
metoprolol succinate 50 mg 50 mg PO DAILY 08/01/25 08/01/25 08/01/25 History
tablet,extended release 24 hr
multivitamin 1 tab PO DAILY 08/01/25 08/01/25 08/01/25 History
olmesartan 40 mg tablet 40 mg PO DAILY 08/01/25 08/01/25 08/01/25 History
omega 0-nde-ioy-fish oil 1,200 mg 2 cap PO DAILY 08/01/25 08/01/25 08/01/25 History
(144 mg-216 mg) capsule (Fish Oil)
Review of Systems
-
History Source: Patient
All other systems: Negative unless noted
Vitals / Labs / Diagnostic Testing
Vital Signs
Temp Pulse Resp BP Pulse Ox
99.0 F 75 16 127/67 97
08/02/25 08:03 08/02/25 05:00 08/02/25 08:03 08/02/25 03:15 08/02/25 08:03
Lab Data
08/02/25 03:21
08/02/25 03:21
Laboratory Results
08/01/25 08/01/25 08/02/25
12:45 21:19 03:21
PT 13.5
INR 1.05
APTT 30.6 98.0 H 96.9 H
Microbiology
08/01/25 17:18 Nasal Swab Influenza Types A & B (JOYCE) - Final
Negative for Influenza A & B, NAAT
Negative results must be combined with clinical observations
and patient history.
Nucleic Acid Amplification test (NAAT)performed on the
[employer] platform.
Diagnostic Testing:
Physical Exam
-
HEENT: Normocephalic, Anicteric and Other (Thick neck)
Cardiovascular: S1/S2 and Peripheral Edema (negative)
Respiratory: Wheeze (negative), Rales (negative), Rhonchi (negative) and Non-Labored Respirations
GI: Soft, Distended (Abdominal obesity), Non Tender and Normal Bowel Sounds
Neurology: Awake, Alert, Oriented and Tremors (negative)
Skin: Warm and Dry
General: Respiratory Distress (negative), Comfortable, Chills (negative) and Sweats (negative)
Assessment
-
Assessment: 75-year-old male with a past medical history of anemia, RA, PMR, hypertension, hyperlipidemia and history of COVID-19 who presents for chest pain + SOB. EKG showed nonspecific ST�T wave changes with ST depression/T wave inversions in
the lateral precordial leads, and troponins were negative x 4. His SOB started on [place] and he does not usually have SOB. He has a non-� bothersome cough. He has been feeling fatigued for 2 months, and was recently diagnosed with severe
sleep apnea. He is awaiting to see us in the office with Dr. Clements. The sleep study was ordered by his manufacturing quality engineer, Dr. Ornelas. CXR showed a mild localized opacity in the left lower lobe with suspected pneumonia. Given his concern for
unstable angina, a left heart catheterization was performed earlier this morning (08/02), showing nonobstructive CAD with normal LV filling pressures and no aortic stenosis. Heparin drip was stopped. Unfortunately, his SOB + chest discomfort has
persisted. Pulmonary service now consulted for additional management/recommendations.
Chronic conditions [employer]: History of migraine headaches, hypokalemia, rheumatoid arthritis, history of psoriatic arthritis, hyperlipidemia, hypertension, history of MSSA bacteremia (2021), iron deficiency anemia, history of TACO, BPH, history of
H. pylori, colonic polyp
Impression:
#Chest pain + SOB
#Retrocardiac opacity � differential includes nodular atelectasis vs pneumonia
#Hypokalemia
#History of eosinophilia (absolute eosinophil count: 800 in October 2022)
#Severe TAMIR (recently diagnosed � sleep study ordered by his manufacturing quality engineer, Dr. Ornelas)
#Iron deficiency anemia (Ferritin: 7.7 on 09/21/2022)
#PMR
#RA
#History of cephalic vein thrombosis provoked by PICC line (October 2022)
#Mild pulmonary hypertension (PASP: 35-40 mmHg on echo from September 2022)
Plan:
- Patient has presented with chest pain + SOB with LHC negative for obstructive CAD
- Heparin gtt now stopped; re-check EKG tomorrow to assess for persistence of his abnormal ST�T changes
- Given his trip to [place] in May and the fact that his chest pain is pleuritic, and acute PE is certainly a possibility, however his D-dimer on admission was WNL at 0.3
- I will order a CTA chest which will be done tomorrow given his [facility] today (08/02) to avoid an excessive contrast load (this was also agreed upon by radiology)
- Check echo now to assess right-sided pressures + RV size/function
- If PASP is greater than 35�40 from last echo in 2022, and/or RV size/function is abnormal then would place back onto heparin drip until CTA chest has been performed
- He does have a history of eosinophilia with absolute count of 800 in October 2022, and has been between 200�300 since this admission � give trial of DuoNebs to see if symptoms improve
- prn nebulized bronchodilators - not currently bronchospastic
- Continue supplemental oxygen if needed to maintain SpO2 >90-94%
- If patient receives DuoNebs and feels significant improvement, then would consider starting a LABA/ICS or scheduled DuoNebs
- Agree with empiric antibiotics although I do not suspect he is having pneumonia given he lacks symptoms, is nontoxic-appearing and has been afebrile
- Continue with ceftriaxone + Doxy for now
- Check procalcitonin and if negative (<0.25), then would stop antibiotics at that time
- Trend WBC and monitor temperature curve
- Given reports of his newly diagnosed severe sleep apnea, I will start him on CPAP tonight
- He has yet to start CPAP treatment
- He already has an office visit scheduled for 08/20/[address] Clements
- Remainder of TAMIR management will be performed as an outpatient
- Incentive spirometer encouraged q1hr while awake
- Replete electrolytes with K>4, Mg>2
- Trend H/H and transfuse if needed to keep Hb>7g/dL; keep plt>20k, unless there is concern for bleeding then keep plt>50k
- Maintain euglycemia with goal BG >100 and <180; check A1C
- DVT ppx: Now that heparin drip is stopped, start LMWH
Dr. Gil spoke to the patient's , Agustina Ramirez, at bedside and all questions were answered.
Pulmonary service will continue to follow along. Outpatient office follow-up already arranged with Dr. Clements (08/20/2025 at 4:00PM)
Data:
CXR 08/01/2025: Mild localized opacity in the left lower lobe, probable pneumonia. Recommend follow-up after conservative therapy to assess resolution.
Left heart catheterization 08/02/2025:
CONCLUSIONS:
1. Normal LV filling pressure and no aortic stenosis
2. Mild CAD unchanged from 2021 as described
RECOMMENDATIONS:
1. workup for etiology of chest pain no related to epicardial CAD
2. primary prevention of CAD
Transthoracic echocardiogram 10/04/2022:
Normal biventricular size and systolic function without regional wall motion abnormality.
Moderate left atrial enlargement.
Mild mitral regurgitation.
Mild tricuspid regurgitation.
Estimated pulmonary artery pressure of 35-40 mmHg assuming a right atrial pressure of 3 mmHg.
Compared to prior study of 07/06/2022 left atrial enlargement is now present, and PASP estimate has increased from 15-20 mmHg.
Total time spent today was 58 minutes for this encounter. Time includes reviewing laboratory test/imaging results, reviewing pertinent medical records, obtaining and reviewing medical history, performing an appropriate exam, ordering medications,
tests and procedures. Time also includes documentation of this encounter, coordinating patient care and communicating with other healthcare professionals. Total time does not include separately billed tests performed on this date of service.
--- NOTE | 2025-08-02 10:45 | ITS.CL.PN ---
[employer] Officer - Procedure Note
Procedure
Procedure Note:
CARDIAC CATHETERIZATION REPORT
Date of Procedure: 08/02/2025
Referring: Dr. Nadeen Khan MD
Indication: concern for ACS
PROCEDURE(S)
1. left heart catheterization
2. coronary angiography
ACCESS: 6F right radial artery (closure: radial band)
CATHETERS
1. 6F JR4
2. 6F JL4
MODERATE SEDATION: 25 minutes of moderate sedation was utilized. An independent electromedical equipment repairer was present to assist with and help manage the patient's level of consciousness and physiologic status.
HEMODYNAMIC DATA
LV 140/2 (EDP 9) mmHg
AO 144/79 (mean 98) mmHg
CORONARY ANGIOGRAPHY
Dominance: right
LM: large, normal
LAD: large vessel giving rise to two moderate caliber diagonals and wrapping around the apex. There are trivial luminal irregularities only.
LCx: large vessel giving rise to a large high-rising OM1/ramus, moderate caliber OM2, small OM3, and moderate caliber LPL. There are trivial luminal irregularities only.
RCA: large vessel giving rise to a moderate caliber RPDA. There is a 30-40% stenosis in the mid-RCA that is unchanged from prior angiography in 2021.
CONCLUSIONS
1. Normal LV filling pressure and no aortic stenosis
2. Mild CAD unchanged from 2021 as described
RECOMMENDATIONS
1. workup for etiology of chest pain no related to epicardial CAD
2. primary prevention of CAD
Copy to: Dr. Ernestina Rodrigez MD (solutions operator); Dr. Kimmie Renee MD (PCP)
Signed: Jose Block MD, PhD
--- NOTE | 2025-08-02 11:08 | W.PN.CD ---
Today's Communication / Plan
-
cath without obstructive CAD
stop heparin and nitro, resume home meds
tx for pneumonia per hospitalist team
stable for discharge from CV standpoint
Impression / Plan
-
75-year-old gentleman with history of nonobstructive coronary disease, HPL, and HTN presented with 1 day history of chest pain
Unstable angina/NSTEMI
- reports exertional and rest pain, now CP free on low dose nitro
- Troponin is negative x3, EKG with lateral ST depressions
- cardiac cath today with no obstructive CAD, mild mid-RCA stenosis stable from 2021
- etiology of chest pain unlikely to be cardiac
- stop nitro, heparin
- resume home meds
- stable for discharge from CV standpoint
Left lower lobe opacity
- Chest x-ray mild localized left lower lobe pneumonia
- Rule out COVID
- Treat with ceftriaxone and doxycycline
Hypokalemia
- Replete potassium
Hypertension
- resume home meds
Physical Exam
Vital Signs/Labs
Vital Signs
Temp Pulse Resp BP Pulse Ox
37.2 C 75 16 127/67 97
08/02/25 08:03 08/02/25 05:00 08/02/25 08:03 08/02/25 03:15 08/02/25 08:03
08/01/25 08/02/25 08/03/25
06:59 06:59 06:59
Actual Weight 88.9 kg
08/02/25 03:21
08/02/25 03:21
PT 13.5 Sec (11.4-14.6) 08/01/25 12:45
INR 1.05 08/01/25 12:45
APTT 96.9 Sec (23.4-35.0) H 08/02/25 03:21
LAB Results
1208/01/25 08/01/25
12:45 15:48 21:19
Troponin I < 0.012 < 0.012 < 0.012
08/02/25 08/02/25
03:21 09:40
Troponin I < 0.012 Cancelled
Physical Exam
Cardiovascular: Rhythm & rate is regular
Respiratory: Respiratory effort normal
Neuro/Psych: AO x 3
Data Reviewed
-
Date of Service: August 02, 2025
Medical Decision Making: Reviewed Test Results
EKG: Tracing Personally Visualized and interpreted
Labs: Labs Reviewed by me
--- NOTE | 2025-08-02 11:23 | PTCARENOTE ---
Patient received from the clinical laboratory assistant. Right radial band intact. VSS. at bedside
--- NOTE | 2025-08-02 11:47 | CM ---
pt prev indep, lives with his in [facility] home with 1 step to enter, he has a cane and a walker at home to use if needed. planis for dc to home when medically stable.
[2025-08-02] MEDS: STERILE WATER FOR INJECTION 10 ML IV (14:33)
[2025-08-02] MEDS: ROCEPHIN 1000 MG IV (14:33)
--- NOTE | 2025-08-02 14:58 | PTCARENOTE ---
Heart station notified to do ECHO today
[2025-08-02] MEDS: DUONEB 3 ML INH (16:01)
[2025-08-02] MEDS: LOVENOX 40 MG SC (17:15)
[2025-08-02 17:46] LABS: Procalcitonin < 0.05 ng/ml (0.0-0.25)
[2025-08-02] MEDS: AMBIEN 10 MG PO (20:17)
--- NOTE | 2025-08-03 02:08 | PTCARENOTE ---
Assumed care on pt at 1900, aaox3, denies c/o SOB, some mid chest discomfort with deep breathing, R radial cath site with clean, dry and intact dressing, good pulses, no swelling or bruising noted. SR on tele monitor, HR 80's. BP stable. Call hutson
within reach, POC ongoing.
[2025-08-03 04:30] VITALS: BP 136/66
[2025-08-03 05:43] LABS: Hematocrit 35.0 % (39.0-52.0); Hemoglobin 11.2 g/dL (13.0-18.0); Mean Corp Hgb Conc. 32.0 g/dL (33.0-37.0); Mean Corpuscular Volume 80.1 fL (80.0-94.0); Platelet Count 230 10^3/uL (130-400); Red Cell Dist. Width 21.2 % (11.5-14.5)
[2025-08-03 05:58] LABS: APTT 35.4 Sec (23.4-35.0)
[2025-08-03 06:07] LABS: Blood Urea Nitrogen 17 mg/dl (9-20); Calcium 8.6 mg/dl (8.4-10.2); Carbon Dioxide 26 mmol/L (22-30); Chloride 105 mmol/L (98-107); Estimated Creatinine Clearance 70 ml/min; Glucose 106 mg/dl (70-99); Magnesium 2.1 mg/dl (1.6-2.3); Potassium 3.7 mmol/L (3.5-5.1); Sodium 138 mmol/L (135-145); eGFR > 60.00
[2025-08-03 07:05] VITALS: BP 135/79
[2025-08-03 08:22] VITALS: BP 125/62
[2025-08-03] MEDS: LIPITOR 40 MG PO (08:24)
[2025-08-03] MEDS: THERAGRAN 1 TABLET PO (08:24)
[2025-08-03] MEDS: ASPIR LOW (ENTERIC COATED) 81 MG PO (08:24)
[2025-08-03] MEDS: CYMBALTA DELAYED RELEASE 90 MG PO (08:24)
[2025-08-03] MEDS: TOPROL XL 50 MG PO (08:24)
[2025-08-03] MEDS: VIBRAMYCIN 100 MG PO (08:24)
[2025-08-03] MEDS: PROTONIX 40 MG PO (08:24)
--- NOTE | 2025-08-03 09:39 | W.PN.HOSP.TC ---
Addendum entered and electronically signed by Santiago Turner MD 08/03/25 13:14:
Addendum CT chest negative PE. Review result with pulmonary. Reviewed results with patient and . For outpatient pulmonary follow-up. Patient is feeling better. Did not need
Pain medication for pleuritic chest pain
Elevated monocytosis, would recommend oncology/hematology outpatient follow-up
Okay to discharge
End
Original Note:
Today's Communication/Plan
-
Possible discharge after CT chest
Assessment / Plan
Assessment / Plan
Physical Exam
General: Well Developed, Well Nourished and No Apparent Distress
HEENT: Normocephalic, Moist mucous membranes and Atraumatic
Respiratory: Clear
Cardiac: S1/S2
GI: Soft, Non Tender, Non Distended and Normal Bowel Sounds;
Rectal: Deferred by Provider
Musculoskeletal: No Clubbing, No Cyanosis and No Edema
Skin: No Rash
Neuro: Nonfocal/grossly intact
Psych: calm
# Chest pain
Better, c/w pleurisy
C no obstructive CAD
NSTMI is ruled out as Troponin is negative x3, EKG with lateral ST depressions
- cardiac cath with no obstructive CAD, mild mid-RCA stenosis stable from 2021
Echo 08/02
Normal biventricular size and systolic function without regional wall motion abnormality. LVEF 64%.
2. No significant valvular disease.
3. Normal PASP.
4. No pericardial effusion.
5. Mildly dilated aortic root (4.1 cm).
6. Compared to prior echocardiogram in 2022, PASP has decreased from 35-40 mmHg. Aortic root previously measured 3.8 cm.
Per cardiology, ok to discharge
# Mild localized opacity in the left lower lobe
- Chest x-ray showed mild localized opacity left lower lobe probable pneumonia/ atelectasis , lack of sob/cough/ leukocytosis ( he denies cough)
-Negative COVID and influenza
-Empiric ceftriaxone/doxycycline for now , CT to rule out pE. d/w pulmonary/ cardiology/ radiology, agreement to space out catheterization and CT angio to avoid kidney damage since the patient is hemodynamically stable and did not have signs of
right ventricular strain on echo or catheterization.
# Hypokalemia
-replaced
Iron deficient anemia
- Continue iron sulfate
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
Essential hypertension
- ok to resume home medications
Hyperlipidemia
Polymyalgia rheumatica
- Continue hydroxychloroquine
Anxiety/depression
- Continue duloxetine
BPH
History of H. pylori
History of colonic polyp
d/w family
Total discharge time spent to see the patient, examine the patient, review data and lab results, discuss discharge plan with patient, nursing staff around 65 minutes
Anticipated Discharge: Today
Subjective/Interval History
-
Date of Service: August 03, 2025
he feels better
less pleuritic chest pain
Objective Data
-
Labs:
Laboratory Results
08/03/25
04:47
WBC 5.7
Hgb 11.2 L
Hct 35.0 L
Plt Count 230
APTT 35.4 H
Sodium 138
Potassium 3.7
Chloride 105
Carbon Dioxide 26
BUN 17
Creatinine 0.9
Glucose 106 H
Calcium 8.6
Vital Signs:
Vital Signs
Temp Pulse Resp BP Pulse Ox
98.3 F 80 16 125/62 96
08/03/25 07:02 08/03/25 08:24 08/03/25 07:02 08/03/25 08:24 08/03/25 08:23
I&O
08/02/25 08/03/25 08/04/25
06:59 06:59 06:59
Intake Total 120 / 120 1010 / 1010
Balance 120 / 120 1010 / 1010
--- NOTE | 2025-08-03 10:03 | PTCARENOTE ---
Patient received at change of shift resting in the bed. SR on telemetry. Right radial cath site with gauze and tegaderm C/D/I, radial pulse palpable. The patient denies pain this morning, reports feeling much better. Denies N/V. Denies feeling
lightheaded or dizzy. Plan of care discussed. Call hutson within reach. Care ongoing.
[2025-08-03 10:23] LABS: Glycohemoglobin (HgbA1c) 6.6 % (4.0-5.9)
[2025-08-03 11:13] VITALS: BP 128/73
--- NOTE | 2025-08-03 12:12 | W.PN.PUL3 ---
Today's Communication / Plan
-
Outpatient pulmonary follow-up
Will reevaluate in the outpatient setting whether asthma is a possibility-less likely as previous to this event patient was feeling okay.
Agree with discharge planning
Sign off
Assessment
-
Assessment: 75-year-old male with a past medical history of anemia, RA, PMR, hypertension, hyperlipidemia and history of COVID-19 who presents for chest pain + SOB. EKG showed nonspecific ST�T wave changes with ST depression/T wave inversions in
the lateral precordial leads, and troponins were negative x 4. His SOB started on [place] and he does not usually have SOB. He has a non-� bothersome cough. He has been feeling fatigued for 2 months, and was recently diagnosed with severe
sleep apnea. He is awaiting to see us in the office with Dr. Clements. 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 Ornelas. CXR showed a mild localized opacity in the left lower lobe with suspected pneumonia. Given his concern for
unstable angina, a left heart catheterization was performed earlier this morning (08/02), showing nonobstructive CAD with normal LV filling pressures and no aortic stenosis. Heparin drip was stopped. Unfortunately, his SOB + chest discomfort has
persisted. Pulmonary service now consulted for additional management/recommendations.
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
H. pylori, colonic polyp
Impression:
#Chest pain + SOB
#Retrocardiac opacity � differential includes nodular atelectasis vs pneumonia
#Hypokalemia
#History of eosinophilia (absolute eosinophil count: 800 in October 2022)
#Severe TAMIR (recently diagnosed � sleep study ordered by his form press operator, Dr. Ornelas)
#Iron deficiency anemia (Ferritin: 7.7 on 09/21/2022)
#PMR
#RA
#History of cephalic vein thrombosis provoked by PICC line (October 2022)
#Mild pulmonary hypertension (PASP: 35-40 mmHg on echo from September 2022)
Plan:
- Patient has presented with chest pain + SOB with LHC negative for obstructive CAD
- ST abnormalities improved on EKG 08/04/2025.
- Cardiology has signed off and cleared patient for discharge.
- Echocardiogram normal LVEF. No pericardial effusion. No significant pulmonary hypertension. No significant valvular disease per
- CT chest 08/03/2025: No pneumonia. No pulmonary embolism. No aortic dissection.There is mild bilateral hilar lymphadenopathy. This is larger on the right than the left and measures roughly 1.5 x 1.0 cm..
- If PASP is greater than 35�40 from last echo in 2022, and/or RV size/function is abnormal then would place back onto heparin drip until CTA chest has been performed
- He does have a history of eosinophilia with absolute count of 800 in October 2022, and has been between 200�300 since this admission �not bronchospastic.
- prn nebulized bronchodilators given with some improvement- not currently bronchospastic
- Whether he would benefit from inhalers can be decided in the outpatient setting. Patient did not report prior asthma symptoms including cough, wheezing or phlegm production.
- I advised him to call us with any change in symptoms.
-With negative CAT scan, no symptoms for pneumonia. Negative procalcitonin-okay to discontinue antibiotics.
- Given reports of his newly diagnosed severe sleep apnea, tolerated B CPAP overnight.
- He has yet to start CPAP treatment
- He already has an office visit scheduled for 08/20/[address] Clements
- Remainder of TAMIR management will be performed as an outpatient
GERD/esophageal spasm should be considered as a differential diagnosis. Can be addressed in the outpatient setting
Hilar lymph node: Slightly increased in size. No prior to compare
Recommend outpatient pulmonary follow-up
Will need repeat CT chest at some point.
Discussed with primary team, okay to discharge.
Dr. Gil spoke to the patient's , Agustina Ramirez, at bedside and all questions were answered.
Dr. Quiñones updated at the bedside. Also son over the phone.
Pulmonary service will continue to follow along. Outpatient office follow-up already arranged with Dr. Clements (08/20/2025 at 4:00PM)
Data:
CXR 08/01/2025: Mild localized opacity in the left lower lobe, probable pneumonia. Recommend follow-up after conservative therapy to assess resolution.
Left heart catheterization 08/02/2025:
CONCLUSIONS:
1. Normal LV filling pressure and no aortic stenosis
2. Mild CAD unchanged from 2021 as described
RECOMMENDATIONS:
1. workup for etiology of chest pain no related to epicardial CAD
2. primary prevention of CAD
Transthoracic echocardiogram 10/04/2022:
Normal biventricular size and systolic function without regional wall motion abnormality.
Moderate left atrial enlargement.
Mild mitral regurgitation.
Mild tricuspid regurgitation.
Estimated pulmonary artery pressure of 35-40 mmHg assuming a right atrial pressure of 3 mmHg.
Compared to prior study of 07/06/2022 left atrial enlargement is now present, and PASP estimate has increased from 15-20 mmHg.
Subjective Data
-
Date of Service:
Date of Service: August 03, 2025
Chief Complaint: Pulmonary Follow Up (Shortness of breath)
Subjective:
Patient feels better
Denies any cough or phlegm production
Denies lightheadedness
Symptoms resolved
Objective Data
Data Reviewed
Vital Signs / I&O / Oxygen:
Vital Signs
Temp Pulse Resp BP Pulse Ox
98.4 F 81 16 128/73 98
08/03/25 11:10 08/03/25 11:13 08/03/25 11:10 08/03/25 11:13 08/03/25 11:13
Intake and Output
08/02/25 08/03/25 08/04/25
06:59 06:59 06:59
Intake Total 120 / 120 1010 / 1010
Balance 120 / 120 1010 / 1010
SaO2 98
Labs/Micro/Reports
Lab Data
08/03/25 04:47
08/03/25 04:47
Laboratory Results
08/03/25
04:47
APTT 35.4 H
Microbiology
08/01/25 17:18 Nasal Swab Influenza Types A & B (JOYCE) - Final
Negative for Influenza A & B, NAAT
Negative results must be combined with clinical observations
and patient history.
Nucleic Acid Amplification test (NAAT)performed on the
Spontaneously NOW platform.
[2025-08-03 14:32] VITALS: BP 135/82
--- NOTE | 2025-08-03 14:46 | W.DCSUMMARY ---
Discharge Summary
Discharge Data
Date of Admission: 08/01/25
Date of Discharge: 08/03/25
-
Pending Results: No
Hospital Course
75 years old male presented with chest pain. Patient reported heaviness like chest pain, mid chest associated with left-sided chest pain what seems to be pleuritic in nature. His pain worsened with the breathing. No fever. No leukocytosis. He
denied cough or shortness of breath. Serial troponin remained negative. He was evaluated by final inspector balance wheel. EKG showed mild lateral wall ST depressions which seemed new from last EKG in 2022. Patient was started on intravenous heparin for possible
unstable angina. Left heart catheterization showed normal LV filling pressure and no cardiac stenosis with mild coronary artery disease that was unchanged from 2021. 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 Patient
was seen by pulmonary doctor for left pleuritic chest pain. CAT scan of the chest with contrast did not show pulmonary embolism or infiltrate, mild bilateral hilar lymphadenopathy, larger on the right than the left and measures roughly 1.5 x 1.0
cm, no axillary lymphadenopathy. Pulmonary doctor recommended outpatient follow-up. Patient reported history of anemia, fatigue last a few months. He was followed by Dr. Lynn and rheumatology. 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 Patient remained hemodynamically stable. He was able to ambulate without distress or hypoxia. He was discharged home in a stable condition.
Discharge Plan
-
Patient Disposition: Home (Routine Discharge)
Discharge Diagnosis/Procedures: Cardiac catheterization you were followed by final inspector balance wheel.
Chest pain, left pleuritic chest pain, could be consistent with a pleurisy. Take Tylenol as needed. Scan of the chest did not show infiltration or consolidation or pulmonary embolism. You are followed by pulmonary doctor. Follow-up in the office
as instructed
Diet: As tolerated
Stand Alone Forms: DC Instructions- Cath/EP Lab
Referrals:
Iban Lafleur DO [Non-Admitting Privileges]
Arianne Gunderson DO [Active, Pulmonary Medicine] - 08/20/25 4:00 pm
Referral Note: Patient wishes to see Dr. Gil; if Dr. Gil has office availability then change to my schedule, otherwise have him keep appointment with Dr. Clements, and can see Dr. Gil at subsequent visit
Carol Erazo MD [Active, Oncology] - in one month
Ernestina Rodrigez MD [Non-Admitting Privileges, Cardiology] - in three to four weeks
Prescriptions:
Continued
duloxetine 30 MG capsule,delayed release(DR/EC)
90 mg PO DAILY
sildenafil [Viagra] 100 MG tablet
100 mg PO DAILYPRN PRN (Reason: ed)
atorvastatin [Lipitor] 40 mg Tablet
40 mg PO DAILY
zolpidem [Ambien] 10 mg Tablet
10 mg PO HSPRN PRN (Reason: sleep)
pantoprazole 40 mg tablet,delayed release (DR/EC)
40 mg PO DAILY
hydrochlorothiazide 25 mg Tablet
25 mg PO DAILY
olmesartan 40 mg Tablet
40 mg PO DAILY
omega [id number] oil [Fish Oil] 1,200 (144-216) mg Capsule
2 cap PO DAILY
ferrous sulfate 325 mg (65 mg iron) tablet
325 mg PO Q48H
aspirin 81 mg Tablet,Delayed Release (Dr/Ec)
81 mg PO DAILY
metoprolol succinate 50 mg Tablet Extended Release 24 Hr
50 mg PO DAILY
diltiazem HCl 120 mg Capsule,Extended Release 24hr
120 mg PO DAILY
multivitamin Tablet
1 tab PO DAILY
Discharge Orders:
Discharge Patient (As Directed); Ordered 08/03/25
Ordered By: Santiago Turner
Care Plan Goals
Care Plan Goals:
Problem: Readiness for enhanced knowledge related to diagnosis and treatment plan
Goal: Understand your diagnosis and treatment plan needs, including medications if applicable.
Instructions: Know your diagnosis, underlying causes and treatment plan options, including medications if applicable. Consult with your health care team to learn about your diagnosis and treatment plan, including medications if applicable.
Discharge Date and Time
Print Language: MONEGASQUE
--- NOTE | 2025-08-03 15:17 | PTCARENOTE ---
Reviewed discharge instructions with patient and spouse, who verbalized understanding. PIV INT and telemetry removed. Reviewed discharge medications. Patient discharged to home with instructions, CAD booklet, and belongings. Spouse driving.
--- NOTE | 2025-08-05 11:45 | CM ---
pt prev indep, lives with his in [address] [facility] home with 1 step to enter, he has a cane and a walker at home to use if needed. planis for dc to home when medically stable.
== END 2025-08-03 15:24 | disposition home or self-care (01) | DRG 287 ==
LOC: IVU 15:37
PROVIDERS: Physician Assistant; Student in an Organized Health Care Education/Training Program; ADMITTING PHYSICIAN Hospitalist; ATTENDING PHYSICIAN Internal Medicine; CONSULT PHYSICIAN Internal Medicine Cardiovascular Disease; CONSULT PHYSICIAN Internal Medicine Critical Care Medicine; EMERGENCY PHYSICIAN Emergency Medicine
PROC: 4A023N7 Measurement of Cardiac Sampling and Pressure, Left Heart, Percutaneous Approach (ICD-10-PCS; 2025-08-02)
PROC: B2111ZZ Fluoroscopy of Multiple Coronary Arteries using Low Osmolar Contrast (ICD-10-PCS; 2025-08-02)
PROC: 5A09357 Assistance with Respiratory Ventilation, Less than 24 Consecutive Hours, Continuous Positive Airway Pressure (ICD-10-PCS; 2025-08-02)
DX: I25.110 Atherosclerotic heart disease of native coronary artery with unstable angina pectoris (principal); I10 Essential (primary) hypertension; E78.00 Pure hypercholesterolemia, unspecified; M06.9 Rheumatoid arthritis, unspecified; M35.3 Polymyalgia rheumatica; D50.8 Other iron deficiency anemias; N40.0 Benign prostatic hyperplasia without lower urinary tract symptoms; E87.6 Hypokalemia; G47.33 Obstructive sleep apnea (adult) (pediatric); F32.A Depression, unspecified; L40.50 Arthropathic psoriasis, unspecified; I27.20 Pulmonary hypertension, unspecified; F41.9 Anxiety disorder, unspecified; T50.2X5A Adverse effect of carbonic-anhydrase inhibitors, benzothiadiazides and other diuretics, initial encounter; Y92.9 Unspecified place or not applicable; Z86.0100 Personal history of colon polyps, unspecified; Z79.82 Long term (current) use of aspirin; Z79.899 Other long term (current) drug therapy; Z86.19 Personal history of other infectious and parasitic diseases; Z11.52 Encounter for screening for COVID-19; Z86.16 Personal history of COVID-19; Z82.49 Family history of ischemic heart disease and other diseases of the circulatory system
CPT/HCPCS: 71045; 71275; 80048; 80053; 83036; 83735; 83880; 84145; 84484; 85025; 85027; 85379; 85610; 85730; 87502; 87811; 93005; 93306; 93458; 94640; 94660; 96365; 96367; 96375; 99152; 99153; 99285; C1769; Q9967